=== PATIENT | male | born 1965 | race Caucasian/White ===

== ENCOUNTER 2016-11-02 05:55 | Day surgery (SDC) | payer BC, OTHER ==
--- NOTE | 2016-11-01 10:30 | SSS ---
CHIEF COMPLAINT: Need for screening colonoscopy. HISTORY OF PRESENT ILLNESS: Mr. Deras is a 51-year-old male who presents to my office for routine physical. He has never had a colonoscopy and he is over 50. Risks and benefits of screening colonoscopy were discussed and he is agreeable with proceeding. He denies any symptoms referable to his bowel, specifically no abdominal pain, changes in his bowel habits or blood in his stool. He has had no changes in his weight. PAST MEDICAL HISTORY: 1. History of shingles. 2. History of genital herpes diagnosed in 2017. PAST SURGICAL HISTORY: 1. Tonsillectomy in 1974. 2. Vasectomy in 2013. CURRENT MEDICATIONS: None. ALLERGIES: BEE STINGS. FAMILY HISTORY: Father at 65 from a stroke. He also drank alcohol quite a bit. Mother has hypertension. He has two brothers, Mingo, who is healthy and Khadar who at 29 from pneumonia. He has a sister, Sarah, healthy. He has one son and one daughter, both healthy. 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 He is and has two children. REVIEW OF SYSTEMS: He has had some mild knee pain, but this is improved. PHYSICAL EXAMINATION: VITAL SIGNS: Blood pressure 120/70. Weight 180. Height 5'7". GENERAL: He is awake, alert, in no acute distress. HEENT: Unremarkable. NECK: Supple. LUNGS: Clear. CARDIOVASCULAR: Regular rate and rhythm without appreciable murmurs. ABDOMEN: Benign. RECTAL: Deferred until time of colonoscopy. EXTREMITIES: Without edema. NEUROLOGIC: Nonfocal. ASSESSMENT: 1. Need for screening colonoscopy. PLAN: Colonoscopy on 11/02/16. #[id number] [facility]
[2016-11-02] MEDS ORDERED: LACTATED RINGERS 1,000 ML ONE (06:27)
[2016-11-02] MEDS ORDERED: PROPOFOL 200 MG/20 ML VIAL IV ONE (07:00)
[2016-11-02] MEDS ORDERED: LIDOCAINE 1% 10 ML VIAL INJ ONE (07:00)
[2016-11-02] MEDS ORDERED: MIDAZOLAM INJ 5 MG/5 ML VIAL ONE (07:27)
[2016-11-02] MEDS ORDERED: fentaNYL CITRATE INJ 50 MCG/ML AMP ONE (07:27)
[2016-11-02 08:52] VITALS: BP 121/77; TEMP 97.8; O2SAT 95
--- NOTE | 2016-11-02 09:00 | OP ---
DATE OF PROCEDURE: 11/02/16 PREOPERATIVE DIAGNOSIS: 1. Screening colonoscopy. POSTOPERATIVE DIAGNOSIS: 1. Normal colonoscopy to the cecum. PROCEDURE: 1. Colonoscopy. SURGEON: Taco Sargent MD. ESTIMATED BLOOD LOSS: None. COMPLICATIONS: No immediate complications. ANESTHESIA: Versed 1 cc, fentanyl 1 cc, propofol 180 mg all administered intravenously by Mohit Drake CRNA, using monitored anesthesia care. TECHNIQUE: After informed consent was obtained from the patient, the patient was taken to the Endoscopy Suite and placed in the left lateral decubitus position. Incremental doses of Versed, fentanyl and propofol were given until adequate conscious sedation was obtained. Vital signs were monitored throughout the procedure. Supplemental oxygen was administered throughout the procedure. After adequate conscious sedation was obtained, digital rectal examination was performed, which showed a normal sized prostate. The colonoscope was then advanced into the patient's rectum and up through the sigmoid, descending, transverse and ascending colon to the level of the cecum. The usual cecal landmarks were identified. The colonoscope was then advanced in the terminal ileum. This appeared normal. The colonoscope was then removed from the terminal ileum. Overall, the bowel prep was quite good. There were a few areas of liquid stool and effort was made to suction out as much of this as possible. The colonoscope was then slowly withdrawn taking great care to try to visualize all emanuel of the colon in 360 degree fashion. No abnormalities were noted throughout the entire colon. The scope was retroflexed in the rectum and the rectum appeared normal. The colonoscope was then unretroflexed and air was suctioned out of the patient's rectum. The colonoscope was removed from the patient. The patient tolerated the procedure well and was taken back to the recovery area in good condition. PLAN: Followup in my office per routine. Repeat colonoscopy in 8 to 10 years, or sooner if symptoms dictate. #[id number] [facility]
== END 2016-11-02 08:35 | disposition home or self-care (01) ==
LOC: AMB 05:55
PROVIDERS: ATTEND Family Medicine
DX: Z12.11 Encounter for screening for malignant neoplasm of colon (principal)
CPT/HCPCS: 00810; 45378; J2250; J3010; J3490; J7120